=== PATIENT | male | born 1970 | race African-American/Black ===

== ENCOUNTER 2024-04-05 13:12 | Emergency (ER) | payer BC ==
[~2024-04-05] VITALS: Ht 172.7 cm; Wt 177.0 kg
[2024-04-05 13:18] VITALS: O2SAT 100
[2024-04-05 13:23] VITALS: BP 161/98; PULSE 87; RESP 17; TEMP 35.9; O2SAT 99
== END 2024-04-05 14:44 | disposition left against medical advice (07) ==
LOC: ER 13:12
DX: R10.9 Unspecified abdominal pain (principal); R07.9 Chest pain, unspecified; Z53.21 Procedure and treatment not carried out due to patient leaving prior to being seen by health care provider
CPT/HCPCS: 93005